=== PATIENT | female | born 1965 | race Caucasian/White ===

== ENCOUNTER 2020-08-23 09:20 | Inpatient (IN) | payer OTHER ==
[2020-08-14 15:18] VITALS: BMI 34.3
[2020-08-23] MEDS ORDERED: DEXAMETHASONE SOD PHOSPHATE/PF 10 MG/ML SDV ONE (11:47)
[2020-08-23] MEDS ORDERED: BUPIVACAINE HCL/PF 0.5% (5 MG/ML) 30 ML VIAL IJ ONE (11:47)
[2020-08-23] MEDS ORDERED: MIDAZOLAM HCL 2 MG/2 ML SINGLE DOSE VIAL ONE ×2 (11:47→13:39)
[2020-08-23] MEDS ORDERED: CEFAZOLIN 2 GM in DEXTROSE 5%-WATER - 50 ML IVPB ONE (13:37)
[2020-08-23] MEDS ORDERED: VANCOMYCIN 1 GM in D5W (PRE-DOCKED) 1,000 MG/250 ML IVPB ONE (13:37)
[2020-08-23] MEDS ORDERED: TRANEXAMIC ACID 1000 MG/10 ML VIAL IVPUSH ONE (13:38)
[2020-08-23] MEDS ORDERED: PROPOFOL 20 ML ONE ×3 (13:39)
[2020-08-23] MEDS ORDERED: EPHEDRINE SULFATE/0.9% NACL/PF 50 MG/10 ML SYRINGE NR ONE (13:39)
[2020-08-23] MEDS ORDERED: SUCCINYLCHOLINE CHLORIDE 200 MG/10 ML SYRINGE ONE (13:39)
[2020-08-23] MEDS ORDERED: VANCOMYCIN 1,000 MG VIAL (RESTRICTED TO ID ONLY) ONE (14:20)
[2020-08-23] MEDS ORDERED: SODIUM CHLORIDE 0.9% P/F 10 ML VIAL IJ ONE (14:49)
[2020-08-23] MEDS ORDERED: ceFAZolin SODIUM 1 GM VIAL ONE (14:49)
[2020-08-23] MEDS ORDERED: oxyCODONE HCL 5 MG TABLET PO PRN (16:19)
[2020-08-23] MEDS ORDERED: ACETAMINOPHEN 1000 MG/100 ML VIAL (NON FORMULARY) IVPB ONE (16:19)
[2020-08-23] MEDS ORDERED: traMADol HCL 50 MG TABLET PO PRN (16:19)
[2020-08-23] MEDS ORDERED: ONDANSETRON 4 MG/2 ML VIAL IVPUSH PRN (16:22)
[2020-08-23] MEDS ORDERED: ALBUTEROL SO4 HFA INHALER IH PRN (16:27)
[2020-08-23] MEDS ORDERED: LACTATED RINGERS SOLUTION 1,000 ML IV SCH ×2 (16:30)
[2020-08-23] MEDS ORDERED: MAGNESIUM HYDROX 2400MG/30ML ORAL SUSPENSION 30 ML CUP PO PRN (16:30)
[2020-08-23] MEDS ORDERED: CEFAZOLIN 2 GM/D5W 2 GM/50 ML ML IVPB SCH ×2 (17:45→21:00)
[2020-08-23] MEDS: oxyCODONE HCL 5 MG TABLET PO PRN ×2 (18:03→21:09)
[2020-08-23] MEDS: CEFAZOLIN 2 GM/D5W 2 GM/50 ML ML IVPB SCH (20:38)
[2020-08-23] MEDS: ASPIRIN 81 MG CHEWABLE TABLETS PO SCH (21:09)
[2020-08-23] MEDS: CELECOXIB 200 MG CAPSULE PO SCH (21:09)
[2020-08-23] MEDS: SENNOSIDES/DOCUSATE COMBO (SENNA PLUS) TABLET (UD) PO SCH (21:10)
[2020-08-23] MEDS ORDERED: HYDROmorphone HCl 2 MG/ML VIAL IVPB ONE (21:36)
[2020-08-23] MEDS ORDERED: diazePAM 5 MG TABLET PO PRN (21:36)
[2020-08-23] MEDS ORDERED: CEFAZOLIN 1 GM in DEXTROSE 5%-WATER - 50 ML IVPB SCH (23:00)
[2020-08-24] MEDS: oxyCODONE HCL 5 MG TABLET PO PRN ×2 (01:18→05:31)
[2020-08-24] MEDS: CEFAZOLIN 2 GM/D5W 2 GM/50 ML ML IVPB SCH ×2 (03:04→08:05)
[2020-08-24] MEDS ORDERED: HYDROmorphone HCl 2 MG/ML VIAL IVPB ONE (06:19)
[2020-08-24] MEDS: ACETAMINOPHEN 500 MG TABLET (FP) PO SCH ×4 (06:30→23:59)
[2020-08-24 08:04] LABS: CALCIUM 8.6 mg/dl (8.5-10); CREATININE 0.6 mg/dl (0.55-1.3); MAGNESIUM 1.9 mg/dL (1.8-2.4); POTASSIUM 3.7 mmol/L (3.5-5.1)
[2020-08-24] MEDS: ONDANSETRON 4 MG/2 ML VIAL IVPUSH PRN (08:05)
[2020-08-24 08:14] LABS: HEMOGLOBIN 12.7 GM/dl (10.7-15.3); MCHC 34.4 g/dl (32.0-36.0); MEAN CELL VOLUME 92.9 fl (80-96); MEAN PLT VOLUME 8.7 fl (7.5-11.1); PLATELET COUNT 281 K/MM3 (134-434); RBC 3.98 M/mm3 (3.60-5.2); RDW 12.3 % (11.6-15.6)
[2020-08-24] MEDS ORDERED: ALBUTEROL SO4 HFA INHALER IH PRN (09:50)
[2020-08-24] MEDS ORDERED: oxyCODONE HCL 5 MG TABLET PO PRN ×2 (09:51)
[2020-08-24] MEDS: ASPIRIN 81 MG CHEWABLE TABLETS PO SCH ×2 (10:45→21:18)
[2020-08-24] MEDS: LOSARTAN POTASSIUM 50 MG TABLET PO SCH (10:45)
[2020-08-24] MEDS: CELECOXIB 200 MG CAPSULE PO SCH ×2 (10:45→21:18)
[2020-08-24] MEDS: SENNOSIDES/DOCUSATE COMBO (SENNA PLUS) TABLET (UD) PO SCH ×2 (10:45→21:18)
[2020-08-24] MEDS: PANTOPRAZOLE 40 MG TABLET PO SCH (10:45)
[2020-08-24] MEDS: MAG HYDROX/AL HYDROX/SIMETH 30 ML UNIT-DOSE CUP PO PRN ×2 (12:56→17:27)
[2020-08-25] MEDS: traMADol HCL 50 MG TABLET PO PRN ×2 (01:16→11:59)
[2020-08-25] MEDS: MAG HYDROX/AL HYDROX/SIMETH 30 ML UNIT-DOSE CUP PO PRN (01:16)
[2020-08-25] MEDS: ACETAMINOPHEN 500 MG TABLET (FP) PO SCH ×2 (06:17→11:58)
[2020-08-25 06:32] VITALS: BP 105/55; PULSE 54; TEMP 97.4
[2020-08-25] MEDS: ONDANSETRON 4 MG/2 ML VIAL IVPUSH PRN (06:38)
[2020-08-25 08:08] LABS: HEMOGLOBIN 11.7 GM/dl (10.7-15.3); MCH 31.2 pg (25.7-33.7); MCHC 33.3 g/dl (32.0-36.0); MEAN CELL VOLUME 93.8 fl (80-96); PLATELET COUNT 200 K/MM3 (134-434); RBC 3.73 M/mm3 (3.60-5.2); RDW 12.5 % (11.6-15.6); WHITE BLOOD COUNT 10.8 K/mm3 (4.0-10.8)
[2020-08-25] MEDS: LOSARTAN POTASSIUM 50 MG TABLET PO SCH (10:52)
[2020-08-25] MEDS: SENNOSIDES/DOCUSATE COMBO (SENNA PLUS) TABLET (UD) PO SCH (10:52)
[2020-08-25] MEDS: PANTOPRAZOLE 40 MG TABLET PO SCH (10:53)
[2020-08-25] MEDS: CELECOXIB 200 MG CAPSULE PO SCH (10:53)
[2020-08-25] MEDS: ASPIRIN 81 MG CHEWABLE TABLETS PO SCH (10:53)
== END 2020-08-25 13:30 | DRG 470 ==
LOC: UNDOADMIN 09:20 → FM/S 09:20
PROVIDERS: ADMIT Orthopaedic Surgery Orthopaedic Surgery of the Spine; ATTEND Nurse Practitioner Acute Care
PROC: 0SRB03Z Replacement of Left Hip Joint with Ceramic Synthetic Substitute, Open Approach (ICD-10-PCS; principal; 2020-08-23 11:40)
DX: M16.12 Unilateral primary osteoarthritis, left hip (principal); I10 Essential (primary) hypertension; K21.9 Gastro-esophageal reflux disease without esophagitis; J45.909 Unspecified asthma, uncomplicated; E66.9 Obesity, unspecified; Z68.34 Body mass index [BMI] 34.0-34.9, adult
CPT/HCPCS: 36415; 73502-TC-LT-FY; 80048; 83735; 85027; 88305-TC; 88311-TC; 94760; 97010-GP; 97116-GP; 97162-GP; J0131

== ENCOUNTER 2024-06-01 06:00 | Day surgery (SDC) | payer OTHER ==
[2024-05-27 14:30] VITALS: BMI 37.2
[2024-06-01 06:51] VITALS: RESP 16
[2024-06-01] MEDS ORDERED: LIDOCAINE HCL 1%, 10 MG/ML (20ML VIAL) ONE (07:13)
[2024-06-01] MEDS ORDERED: PROPOFOL 20 ML ONE (07:13)
[2024-06-01] MEDS ORDERED: BUPIVACAINE HCL/PF 0.5% (5MG/ML) 10 ML VIAL ONE (07:13)
[2024-06-01] MEDS ORDERED: MIDAZOLAM HCL 2 MG/2 ML SINGLE DOSE VIAL ONE ×2 (07:14→07:54)
[2024-06-01] MEDS ORDERED: GENTAMICIN SO4 80 MG/2 ML VIAL ONE (08:10)
[2024-06-01] MEDS ORDERED: DEXAMETHASONE SOD PHOSPHATE 4 MG/1 ML VIAL ONE (08:22)
[2024-06-01 09:12] VITALS: TEMP 96.7
[2024-06-01 10:03] VITALS: BP 108/59; PULSE 56
== END 2024-06-01 09:40 | disposition home or self-care (01) ==
LOC: FASU 06:00
PROVIDERS: ATTEND Podiatrist
PROC: 0HBMXZZ Excision of Right Foot Skin, External Approach (ICD-10-PCS; 2024-06-01)
PROC: 0SRP0JZ Replacement of Right Toe Phalangeal Joint with Synthetic Substitute, Open Approach (ICD-10-PCS; principal; 2024-06-01 08:05)
DX: M20.41 Other hammer toe(s) (acquired), right foot (principal); L84 Corns and callosities
CPT/HCPCS: 73630-TC-RT-FY; 88305-TC; 88311-TC; 93005; 93010